=== PATIENT | male | born 1965 | race Caucasian/White ===

== ENCOUNTER 2019-04-08 20:35 | Emergency (ER) | payer MEDICARE, MEDICAID ==
[~2019-04-08] VITALS: Ht 170.2 cm; Wt 64.0 kg
--- NOTE | 2019-04-08 21:30 | NUR ---
PATIENT ASKED AGAIN TO PROVIDE URINE SAMPLE, PATIENT REFUSED AGAIN PATIENT'S ELDERLY FATHER DOES NOT REMEMBER HIS SON'S MEDICATIONS PATIENT STATES THAT HE HAS NOT TAKEN ANY MEDICATION IN MANY MONTHS
--- NOTE | 2019-04-08 21:40 | NUR ---
DR LEVY INFORMED ALLISON PATIENT REFUSED HIS SEROQUEL
[2019-04-08 22:01] LABS: BASOPHILS % (AUTO) 0.3 % (0-1); EOSINOPHILS % (AUTO) 0.5 % (0-6); HEMOGLOBIN 16.5 g/dl (14.0-17.9); LYMPHOCYTES # (AUTO) 2.2 X10'3 (1.1-4.8); LYMPHOCYTES % (AUTO) 28.1 % (21-51); MEAN CORPUSCULAR HEMOGLOBIN 30.2 PG (27.0-31.0); MEAN CORPUSCULAR HGB CONC 34.3 g/dL (33.0-36.5); MEAN PLATELET VOLUME 8.3 FL (7.4-10.4); MONOCYTES # (AUTO) 0.6 X10'3 (0-0.9); MONOCYTES % (AUTO) 7.9 % (2-12); NEUTROPHILS % (AUTO) 63.2 % (42-75); PLATELET COUNT 273 X10'3 (140-440); RED BLOOD COUNT 5.46 X10'6 (4.70-6.10); RED CELL DISTRIBUTION WIDTH 13.3 % (11.5-14.5); WHITE BLOOD COUNT 7.8 X10'3 (4.5-11.0)
[2019-04-08] MEDS: QUEtiapine 25mg tablet PO SCH ×2 (22:08→22:16)
[2019-04-08 22:10] LABS: ALANINE AMINOTRANSFERASE 17 U/L (12-78); ALBUMIN 4.2 G/DL (3.4-5.0); ALBUMIN/GLOBULIN RATIO 1.2 (1.1-1.5); ALKALINE PHOSPHATASE 66 IU/L (46-116); ANION GAP 10 (8-16); ASPARTATE AMINO TRANSFERASE 12 U/L (10-37); BILIRUBIN,TOTAL 0.9 MG/DL (0.1-1.0); BLOOD UREA NITROGEN 5 MG/DL (7-18); BUN/CREATININE RATIO 4.7 (5.4-32.0); CALCIUM 9.1 MG/DL (8.5-10.1); CHLORIDE 107 MMOL/L (99-107); CREATININE 1.06 MG/DL (0.60-1.10); GLUCOSE 95 MG/DL (70-104); POTASSIUM 3.7 MMOL/L (3.5-5.1); SODIUM 143 MMOL/L (135-145); TOTAL CARBON DIOXIDE 26.4 MMOL/L (24-32); TOTAL PROTEIN 7.7 G/DL (6.4-8.2); eGFR 73 ML/MIN
[2019-04-08 22:19] LABS: ETHANOL < 0.010 GM/DL (0.0-0.010)
--- NOTE | 2019-04-08 22:42 | NUR ---
walked patient's father to registration in order to get to the [facility]
--- NOTE | 2019-04-08 23:00 | NUR ---
PATIENT APPEARS TO BE SLEEPING; EYES CLOSED, RR EVEN AND UNLABORED
--- NOTE | 2019-04-08 23:55 | NUR ---
PER EXTERNAL MEDICATION HISTORY: MARCELA SHAYLA [phone] PRESCRIBED THE FOLLOWIN11/25/18 RISPERIDAL 1.5 MG DAILY PO 12/26/18 METOPROLOL 50 MG SR PO DAILY # 30 12/26/18 TRAZADONE 100 MG PO #30
--- NOTE | 2019-04-08 23:58 | NUR ---
2135: PATIENT HELD AND ROLLED THE SEROQUEL TABLET IN HIS HANDS AND THEN SAID "THEY TOLD ME NOT TO TAKE IT" PATIENT DID NOT ANSWER WHEN ASKED WHO TOLD HIM NOT TO TAKE IT.
--- NOTE | 2019-04-09 00:15 | NUR ---
PATITIENT WOKE UP AND HAD TO URINATE: 200 ML DARK MARY URINE
[2019-04-09 00:35] LABS: CLARITY,URINE CLEAR (Clear); COLOR,URINE YELLOW (Yellow); GLUCOSE, URINE NEGATIVE (Neg); KETONES,URINE NEGATIVE (Neg); LEUKOCYTE ESTERASE ,URINE NEGATIVE (Neg); NITRITES, URINE NEGATIVE (Neg); OCCULT BLOOD,URINE SMALL (Neg); PH,URINE 5.5 (4.8-8.0); PROTEIN,URINE NEGATIVE (Neg); UROBILINOGEN,URINE 0.2 E.U/dL (0.2-1.0)
[2019-04-09 00:41] LABS: UA COLLECTION TYPE URINAL
[2019-04-09 00:42] LABS: BACTERIA,URINE NONE SEEN /HPF (Neg); RBC,URINE 0-2 /HPF (0-2); SQUAMOUS EPITHELIAL CELL,UR FEW /LPF (FEW); WBC,URINE 0-4 /HPF (0-4)
[2019-04-09 00:45] LABS: URINE AMPHETAMINE SCREEN NEGATIVE (Neg); URINE BARBITUATE SCREEN NEGATIVE (Neg); URINE BENZODIAZEPINES SCREEN NEGATIVE (Neg); URINE CANNABINOID SCREEN NEGATIVE (Neg); URINE COCAINE SCREEN NEGATIVE (Neg); URINE METHADONE SCREEN NEGATIVE (Neg); URINE OPIATE SCREEN NEGATIVE (Neg); URINE PHENCYCLIDINE SCREEN NEGATIVE (Neg)
--- NOTE | 2019-04-09 02:31 | NUR ---
PATIENT APPEARS TO BE SLEEPING ON HIS RIGHT SIDE RR EVEN AND UNLABORED
[2019-04-09 05:54] VITALS: BP 110/84
--- NOTE | 2019-04-09 06:42 | NUR ---
Patient is in bed, sleeping.
--- NOTE | 2019-04-09 07:53 | NUR ---
patient appears to be sleeping
--- NOTE | 2019-04-09 08:51 | NUR ---
Patient is laying on his stomach and he appears to be sleeping.
--- NOTE | 2019-04-09 09:04 | NUR ---
Patient is laying on his stomach and he appears to be sleeping.
--- NOTE | 2019-04-09 09:50 | NUR ---
Patients dad is here visiting. The patient is eating breakfast.
--- NOTE | 2019-04-09 10:49 | NUR ---
Patient is resting quietly with his father at the bedside.
--- NOTE | 2019-04-09 11:31 | NUR ---
patient is sitting in bed talking quietly with his father who is at the bedside.
--- NOTE | 2019-04-09 12:11 | NUR ---
patient appears to be asleep.
--- NOTE | 2019-04-09 13:15 | NUR ---
patient is eatting while his father sits at the bedside.
--- NOTE | 2019-04-09 13:45 | NUR ---
[facility] at the bedside assessing pt.
[2019-04-09] MEDS ORDERED: RISP1TAB3 PO (14:18)
--- NOTE | 2019-04-09 14:42 | NUR ---
Pt changed into clothes, belongings returned to pt. Pt discharged in stable condition with belongings.
== END 2019-04-09 14:46 | disposition home or self-care (01) ==
LOC: ER 20:35
DX: F23 Brief psychotic disorder (principal); G47.00 Insomnia, unspecified; R41.82 Altered mental status, unspecified; Z90.49 Acquired absence of other specified parts of digestive tract; Z87.891 Personal history of nicotine dependence
CPT/HCPCS: 36415; 80053; 80305; 80320; 81001; 84443; 85025; 99284; 99285